=== PATIENT | female | born 2000 | race Caucasian/White ===

== ENCOUNTER 2021-04-22 23:15 | Emergency (ER) | payer OTHER ==
[~2021-04-22] VITALS: Ht 149.9 cm; Wt 77.1 kg
[2021-04-22 23:27] VITALS: BP 129/62
--- NOTE | 2021-04-22 23:32 | NUR ---
AMBULATED TO BED FROM TRIAGE
[2021-04-23] MEDS ORDERED: ACETAMINOPHEN 325 MG TAB PO ONE (01:00)
[2021-04-23 01:30] LABS: BASOPHILS % (AUTO) 0.1 % (0.0-2.0); EOSINOPHILS % (AUTO) 0.3 % (0.0-4.0); HEMATOCRIT 38.1 % (36-48); HEMOGLOBIN 12.9 g/dL (12.0-16.0); LYMPHOCYTES # (AUTO) 2.2 K/uL (2.5-16.5); MEAN CORPUSCULAR HEMOGLOBIN 29 pg (27-31); MEAN CORPUSCULAR HGB CONC 34 g/dL (33-37); MEAN CORPUSCULAR VOLUME 84.9 fL (80-94); MONOCYTES # (AUTO) 0.6 K/uL (0.8-1.0); MONOCYTES % (AUTO) 4.5 % (1.7-9.3); NEUTROPHILS # (AUTO) 9.9 K/uL (1.8-7.7); NEUTROPHILS % (AUTO) 78.1 % (42.2-75.2); PLATELET COUNT (AUTO) 192 K/uL (140-450); RED BLOOD CELL COUNT(AUTO) 4.49 MIL/uL (4.20-5.40); RED CELL DISTRIBUTION WIDTH 13.6 % (11.6-13.7); WHITE BLOOD COUNT (AUTO) 12.7 K/uL (4.8-10.8)
[2021-04-23 01:45] LABS: APPEARANCE,URINE CLEAR (CLEAR); BILIRUBIN,URINE NEGATIVE (NEGATIVE); BLOOD, URINE NEGATIVE (NEGATIVE); COLOR,URINE YELLOW (YELLOW); LEUKOCYTE ESTERASE ,URINE 1+ (NEGATIVE); NITRITE, URINE NEGATIVE (NEGATIVE); PH,URINE 8.5 (5.0-9.0); UGLUCOSE NEGATIVE (NEGATIVE)
[2021-04-23 01:49] LABS: ALBUMIN 3.2 g/dL (3.4-5.0); ANION GAP 14.3 (8-16); CARBON DIOXIDE 24.3 mmol/L (21-32); CREATININE 0.6 mg/dL (0.6-1.3); POTASSIUM 3.6 mmol/L (3.5-5.1); TOTAL BILIRUBIN 0.1 mg/dL (0.0-1.0)
[2021-04-23 02:02] LABS: RBC,URINE 0-5 /HPF (0-5)
--- NOTE | 2021-04-23 02:10 | NUR ---
Patient appears to be resting comfortably in bed- Semi fowlers. Vital Signs within normal limits. Respirations even and unlabored. Provided patient a blanket and safety measures are in place. will continue to monitor patient
--- NOTE | 2021-04-23 02:15 | NUR ---
Called [facility] for ETA of US
--- NOTE | 2021-04-23 02:22 | NUR ---
patient ambulated to the bathroom with a steady gait
--- NOTE | 2021-04-23 03:31 | NUR ---
Ultrasound at bedside.
[2021-04-23] MEDS ORDERED: cefTRIAXone 500 MG in LIDOCAINE MPF 1% 1 ML IM ONE (04:00)
[2021-04-23] MEDS ORDERED: AZITHROMYCIN 250 MG TAB PO ONE (04:00)
[2021-04-23] MEDS ORDERED: cefTRIAXone 500 MG VIAL ONE (04:07)
[2021-04-23] MEDS ORDERED: LIDOCAINE MPF 1% 5 ML ONE (04:08)
--- NOTE | 2021-04-23 04:18 | NUR ---
Patient appears to be resting comfortably in bed- semi fowlers. Vital Signs within normal limits. Respirations even and unlabored. Safety measures in place and will continue to monitor patient.
--- NOTE | 2021-04-23 04:20 | NUR ---
ERMD at bedside to speak with patient about findings.
[2021-04-23] MEDS ORDERED: metroNIDAZOLE 500 MG TAB PO ONE (05:35)
[2021-04-23] MEDS ORDERED: CEPH-588 PO (05:35)
[2021-04-23 05:42] VITALS: BP 107/64
[2021-04-23] MEDS ORDERED: METR-435 PO (06:00)
== END 2021-04-23 05:42 | disposition home or self-care (01) ==
LOC: MED 23:15
DX: R10.9 Unspecified abdominal pain (principal); R19.7 Diarrhea, unspecified; R51.9 Headache, unspecified; R11.0 Nausea
CPT/HCPCS: 36415; 76801; 80053; 81001; 83690; 85025; 86886; 86900; 86901; 87086; 87491; 96372; 99285; J0696; J2001; Q0092

== ENCOUNTER 2021-09-25 11:02 | Observation (INO) | payer OTHER ==
[~2021-09-25] VITALS: Ht 149.9 cm; Wt 81.6 kg
[~2021-09-25 11:02] MED LIST: CEPH-588 PO; METR-435 PO
[2021-09-25] MEDS ORDERED: PREN1COM3 PO (11:34)
[2021-09-25] MEDS ORDERED: LACTATED RINGERS 1,000 ML IV SCH (12:05)
[2021-09-25] MEDS ORDERED: BETAMETH ACET/BETAMETH NA PH 30 MG/5 ML VIAL IM SCH (12:05)
[2021-09-25 13:01] LABS: APPEARANCE,URINE SL CLOUDY (CLEAR); BILIRUBIN,URINE NEGATIVE (NEGATIVE); BLOOD, URINE NEGATIVE (NEGATIVE); COLOR,URINE YELLOW (YELLOW); LEUKOCYTE ESTERASE ,URINE TRACE (NEGATIVE); NITRITE, URINE NEGATIVE (NEGATIVE); PH,URINE 6.5 (5.0-9.0); UGLUCOSE NEGATIVE (NEGATIVE)
[2021-09-25 13:08] LABS: BASOPHILS % (AUTO) 0.4 % (0.0-2.0); EOSINOPHILS % (AUTO) 0.4 % (0.0-4.0); HEMATOCRIT 37.5 % (36-48); HEMOGLOBIN 12.3 g/dL (12.0-16.0); LYMPHOCYTES # (AUTO) 2.3 K/uL (2.5-16.5); LYMPHOCYTES % (AUTO) 21.9 % (20.5-51.1); MEAN CORPUSCULAR HEMOGLOBIN 27 pg (27-31); MEAN CORPUSCULAR HGB CONC 33 g/dL (33-37); MEAN CORPUSCULAR VOLUME 81.5 fL (80-94); MONOCYTES # (AUTO) 0.4 K/uL (0.8-1.0); MONOCYTES % (AUTO) 3.9 % (1.7-9.3); NEUTROPHILS # (AUTO) 7.7 K/uL (1.8-7.7); NEUTROPHILS % (AUTO) 73.4 % (42.2-75.2); PLATELET COUNT (AUTO) 124 K/uL (140-450); RED CELL DISTRIBUTION WIDTH 14.5 % (11.6-13.7); WHITE BLOOD COUNT (AUTO) 10.6 K/uL (4.8-10.8)
[2021-09-25 13:25] LABS: PROTHROMBIN TIME 9.9 secs (10.8-13.4)
[2021-09-25 13:28] LABS: CALCIUM OXALATE CRYSTALS,UR None Seen /HPF (None Seen); HYALINE CASTS, URINE None Seen /LPF (None Seen); OTHER CRYSTALS,URINE None Seen /HPF (None Seen); RBC,URINE NONE SEEN /HPF (0-5); TRICHOMONAS,URINE None Seen /HPF (None Seen); TRIPLE PHOSPHATE CRYSTAL,UR None Seen /HPF (None Seen); URIC ACID CRYSTALS,URINE None Seen /HPF (None Seen); URINE AMORPHOUS URATE None Seen /HPF (None Seen); WBC,URINE 0-5 /HPF (0-5); YEAST,URINE None Seen /HPF (None Seen)
[2021-09-25 13:29] LABS: COARSE GRANULAR CASTS,URINE None Seen /LPF (None Seen); FINE GRANULAR CASTS,URINE None Seen /LPF (None Seen); OTHER CASTS, URINE None Seen /LPF (None Seen); RED BLOOD CELL CASTS,URINE None Seen /LPF (None Seen); WAXY CASTS,URINE None Seen /LPF (None Seen)
[2021-09-25 13:30] LABS: ALBUMIN 2.6 g/dL (3.4-5.0); ANION GAP 15.4 (8-16); CARBON DIOXIDE 20.2 mmol/L (21-32); CREATININE 0.6 mg/dL (0.6-1.3); POTASSIUM 3.6 mmol/L (3.5-5.1); TOTAL BILIRUBIN 0.3 mg/dL (0.0-1.0)
[2021-09-25 14:01] LABS: URINE TOTAL PROTEIN 26.5 mg/dL (0-12)
[2021-09-25 14:36] VITALS: BP 118/62
== END 2021-09-25 14:20 | disposition home or self-care (01) ==
LOC: MLD 11:02
PROVIDERS: ADMIT Obstetrics & Gynecology; ATTEND Obstetrics & Gynecology
DX: O13.3 Gestational [pregnancy-induced] hypertension without significant proteinuria, third trimester (principal); Z3A.37 37 weeks gestation of pregnancy; Z20.822 Contact with and (suspected) exposure to COVID-19
CPT/HCPCS: 36415; 59025; 80053; 81001; 82570; 82731; 84550; 85025; 85384; 85610; 85730; 86886; 86900; 86901; 87426; 96360; 96372; G0378; J0702

== ENCOUNTER 2021-09-26 12:36 | Observation (INO) | payer OTHER ==
[~2021-09-26] VITALS: Ht 149.9 cm; Wt 81.6 kg
[~2021-09-26 12:36] MED LIST changes: +PREN1COM3 PO
[2021-09-26] MEDS ORDERED: BETAMETH ACET/BETAMETH NA PH 30 MG/5 ML VIAL IM SCH (13:05)
== END 2021-09-26 14:37 | disposition home or self-care (01) ==
LOC: MLD 12:36
PROVIDERS: ADMIT Obstetrics & Gynecology; ATTEND Obstetrics & Gynecology
DX: O26.893 Other specified pregnancy related conditions, third trimester (principal); R03.0 Elevated blood-pressure reading, without diagnosis of hypertension; Z3A.37 37 weeks gestation of pregnancy
CPT/HCPCS: 59025; 81000; 96372; G0378; G0379; J0702